=== PATIENT | male | born 1965 | race Caucasian/White ===

== ENCOUNTER 2024-09-06 08:18 | Outpatient (CLI) | payer BC, SELFPAY ==
[2024-09-06 08:32] LABS: Hematocrit 44.7 % (40.0-54.0); Hemoglobin 15.5 g/dL (14.0-18.0); Immature Granulocyte Percent A 0.6 % (0.0-0.0); Lymphocytes Absolute Auto 0.89 K/mm3 (1.10-4.50); Mean Corpuscular HGB Conc 34.7 g/dL (32-36); Mean Corpuscular Hemoglobin 29.2 pg (27.0-31.0); Mean Corpuscular Volume 84.3 fL (78.0-102.0); Nucleated Red Blood Cells Absolute Auto 0.00 K/mm3 (0.00-0.00); Nucleated Red Blood Cells Perc 0.0 % (0-0.0); Platelet Count Result 235 K/mm3 (150-420); Red Blood Count 5.30 M/mm3 (4.70-6.10); White Blood Count 6.4 K/mm3 (4.8-10.8)
[2024-09-06 08:43] LABS: Alanine Aminotransferase 19 U/L (6-50); Albumin Level 4.2 g/dL (3.5-5.1); Alkaline Phosphatase 85 U/L (38-126); Anion Gap 5 mmol/L (4-12); Aspartate Amino Transferase 26 U/L (17-59); Bilirubin,Total 1.4 mg/dL (0.2-1.3); Blood Urea Nitrogen 14 mg/dL (9-20); Calcium 8.8 mg/dL (8.4-10.2); Carbon Dioxide 27 mmol/L (22-30); Chloride 108 mmol/L (98-107); Cholesterol 235 mg/dL (0-200); Estimated Glomerular Filt Rate > 60; Glucose 96 mg/dL (65-110); HDL Direct 36 mg/dL; Osmolality Calculated 290 mOsm/kg (285-295); Potassium 4.2 mmol/L (3.4-5.0); Sodium 140 mmol/L (137-145); Total Protein 7.1 g/dL (6.3-8.2); Triglycerides 268 mg/dL (<150)
[2024-09-06 09:13] LABS: Prostate Specific Antigen 1.0 ng/mL (< OR = 4.0)
== END 2024-09-06 08:19 | disposition home or self-care (01) ==
LOC: CHSLAB 08:19
PROVIDERS: PCP Family Medicine; Visit Provider Family Medicine
DX: Z00.00 Encounter for general adult medical examination without abnormal findings (principal); R35.1 Nocturia
CPT/HCPCS: 36415; 80053; 80061; 84153; 85025; G0103

== ENCOUNTER 2024-09-11 14:49 | Outpatient (NON) | payer BC, SELFPAY ==
--- NOTE | 2024-09-11 | S_PTH ---
PATIENT: Moises Rojas LOC: [facility]#:[id number] AGE/SX: 58/M ROOM: RE09/11/[address]: Juan Murguia DO : 1965 BED: DIS: 09/11/2024 SPEC #: [id number] RECD: 09/11/24 15:00 STATUS: JAXSON CASAS #: [id number] PARRISH: 09/11/24 00:[address]: Juan Murguia DEPT: [facility] Surgical RECD BY: Alexa Fernandez MLT, ([facility]) Tissues: A - Skin Bx Procedures: Hematoxylin and Eosin Stain Gross and Microscopic Level 4
== END 2024-09-11 14:50 | disposition home or self-care (01) ==
LOC: CHSLAB 14:51
PROVIDERS: PCP Family Medicine; Visit Provider Family Medicine
DX: C44.619 Basal cell carcinoma of skin of left upper limb, including shoulder (principal)
CPT/HCPCS: 88305